=== PATIENT | male | born 1970 | race Two or more races ===

== ENCOUNTER 2022-06-15 20:15 | Emergency (ER) | payer OTHER ==
[~2022-06-15] VITALS: Ht 172.7 cm; Wt 103.4 kg
[2022-06-15] MEDS ORDERED: AZOR 10-20 MG1 EACH (20:21)
[2022-06-15] MEDS ORDERED: PAXLOVID 150-11 EACH (20:22)
[2022-06-15] MEDS ORDERED: GILTUSS TR TAB1 EACH (20:22)
== END 2022-06-15 21:28 | disposition home or self-care (01) ==
LOC: ER 20:15
DX: U07.1 COVID-19 (principal)